=== PATIENT | male | born 1980 | race Caucasian/White ===

== ENCOUNTER 2019-05-03 10:25 | Emergency (ER) | payer BC ==
[2019-05-03] MEDS ORDERED: MORPHINE 4 MG/ML SYR ONE (12:07)
[2019-05-03] MEDS ORDERED: ONDANSETRON 4 MG/2 ML VIAL ONE (12:07)
[2019-05-03 12:31] LABS: Absolute Lymphocytes (CBC) 2.4 K/uL (0.7-4.9); Basophils % 1.4 % (0-1.3); Hematocrit 43.1 % (39.6-49.0); Lymphocytes % 23.3 % (15.3-44.8); RBC Red Blood Cell Count 4.91 M/uL (4.33-5.43)
[2019-05-03 13:06] LABS: ALT/SGPT 45 U/L (12-78); AST/SGOT 36 U/L (15-37); Albumin 3.6 g/dL (3.4-5.0); Alkaline Phosphatase 65 U/L (45-117); BUN Blood Urea Nitrogen 17 mg/dL (7-18); Bicarbonate 30 mmol/L (21-32); Bilirubin Direct < 0.1 mg/dL (0-0.2); Bilirubin Total 0.4 mg/dL (0.2-1.0); Glucose Level 89 mg/dL (74-106); Lipase 177 U/L (73-393); Potassium 4.6 mmol/L (3.5-5.1); Protein, Total 7.9 g/dL (6.4-8.2); Sodium Level 140 mmol/L (136-145)
--- NOTE | 2019-05-03 13:33 | RAD REPORT ---
EXAM DESCRIPTION: CT - Abdomen Pelvis W Contrast - 05/03/2019 1:21 pm CLINICAL HISTORY: ABD PAIN, pain radiates to the back, bloating COMPARISON: None. TECHNIQUE: Biphasic, helical CT imaging of the abdomen and pelvis was performed following 100 ml non -ionic IV contrast. No oral contrast. All CT scans are performed using dose optimization technique as appropriate and may include automated exposure control or mA/KV adjustment according to patient size. FINDINGS: No suspicious findings in the lung bases. The liver, spleen, and pancreas show no suspicious findings. Gallbladder and biliary tree are also wi thout suspicious finding. Symmetric renal function is seen with no hydronephrosis or suspicious renal mass. No pyelonephritis o r acute parenchymal process. No bladder abnormalities. No adrenal abnormalities. No gastric dilatation or wall thickening. No small bowel abnormality seen. Terminal ileum is normal i n appearance. No appendix abnormality. No acute colon process seen. No free air, free fluid or pneum atosis. Patient does have a 19 x 17 millimeter enhancing lymph node in the right mid abdomen with adj acent stranding. No other lymphadenopathy. No adjacent bowel abnormality seen. No hernia, mass or bu lky lymphadenopathy. No suspicious bony findings. IMPRESSION: Patient has a solitary a 19 x 17 millimeter enhancing lymph node in the right mid abdome n with adjacent stranding. This is most likely mesenteric adenitis process. Adjacent bowel is normal in appearance. No appendicitis or emergent finding. No other significant finding.
--- NOTE | 2019-05-03 13:44 | ER ---
Nurse's Notes [facility] Name: Marcos Viera Age: 39 yrs Sex: Male : 1980 Arrival Date: 05/03/2019 Time: 10:28 Bed 6 Private MD: Diagnosis: Upper abdominal pain, unspecified Presentation: 05/03 10:39 Presenting complaint: Patient states: Upper abd pain radiating to back that began aa5 Monday. Denies nausea/vomiting/diarrhea. Reports bloating. Transition of care: patient was not received from another setting of care. Onset of symptoms was April 2019. Risk Assessment: Do you want to hurt yourself or someone else? Patient reports no desire to harm self or others. Initial Sepsis Screen: Does the patient meet any 2 criteria? No. Patient's initial sepsis screen is negative. Does the patient have a suspected source of infection? No. Patient's initial sepsis screen is negative. Care prior to arrival: None. 10:39 Acuity: HERBERT 3 aa5 10:39 Method Of Arrival: Ambulatory aa5 Historical: - Allergies: 10:41 No Known Allergies; aa5 - Home Meds: 10:41 None [Active]; aa5 - PMHx: 10:41 None; aa5 - PSHx: 10:41 Meniscus sx; aa5 - Immunization history:: Flu vaccine is not up to date. - Social history:: Smoking status: Patient/guardian denies using tobacco. - Ebola Screening: : No symptoms or risks identified at this time. Screenin:05 Abuse screen: Denies threats or abuse. Denies injuries from another. Nutritional sv screening: No deficits noted. Tuberculosis screening: No symptoms or risk factors identified. Fall Risk None identified. Assessment: 12:05 General: Appears in no apparent distress. uncomfortable, well groomed, well developed, sv Behavior is calm, cooperative, appropriate for age. Pain: Complains of pain in left upper quadrant and right upper quadrant Pain currently is 7 out of 10 on a pain scale. Pain began about a week ago Is continuous. Neuro: Level of Consciousness is awake, alert, obeys commands, Oriented to person, place, time, situation, Moves all extremities. Full function Speech is normal. Respiratory: Airway is patent Respiratory effort is even, unlabored, Respiratory pattern is regular, symmetrical. GI: Abdomen is round Reports upper abdominal pain, Patient currently denies diarrhea, nausea, vomiting. Derm: Skin is pink, warm \T\ dry. Vital Signs: 10:41 BP 125 / 79; Pulse 86; Resp 16 S; Temp 97.1(TE); Pulse Ox 96% on R/A; Weight 111.13 kg aa5 (R); Height 5 ft. 10 in. (177.80 cm) (R); Pain 7/10; 12:33 BP 116 / 79; Pulse 79; Resp 16; Temp 97.8; Pulse Ox 95% on R/A; em1 13:42 BP 104 / 66; Pulse 81; Resp 16; Pulse Ox 95% ; sv 10:41 Body Mass Index 35.15 (111.13 kg, 177.80 cm) aa5 ED Course: 10:28 Patient arrived in ED. am2 10:39 Arm band placed on. aa5 10:40 Triage completed. aa5 11:43 [facility]ant[facility] Miller [facility]C [facility]. kb 11:43 Zac Alvares MD is Attending Physician. kb 12:04 Zenaida Watt RN is Primary Nurse. sv 12:05 Patient has correct armband on for positive identification. Placed in gown. Bed in low sv position. Call light in reach. Adult w/ patient. Pulse ox on. NIBP on. Door closed. Head of bed elevated. 12:10 Inserted saline lock: 20 gauge in right antecubital area, using aseptic technique. sv Blood collected. Flushed right antecubital with 5 ml normal saline. 12:19 Basic Metabolic Panel Sent. sv 12:20 CBC with Diff Sent. sv 12:20 Lipase Sent. sv 12:20 Hepatic Function Sent. sv 14:04 No provider procedures requiring assistance completed. IV discontinued, intact, sv bleeding controlled, No redness/swelling at site. Pressure dressing applied. Administered Medications: 12:13 Drug: Zofran 4 mg Route: IVP; Site: right antecubital; sv 13:00 Follow up: Response: No adverse reaction sv 12:15 Drug: morphine 4 mg {Note: RASS0.} Route: IVP; Site: right antecubital; sv 13:00 Follow up: Response: No adverse reaction; RASS: Alert and Calm (0) sv Outcome: 13:43 Discharge ordered by . kb 14:04 Patient left the ED. sg 14:04 Discharged to home ambulatory, with family. sv 14:04 Condition: stable 14:04 Discharge instructions given to patient, Instructed on discharge instructions, follow up and referral plans. medication usage, Demonstrated understanding of instructions, follow-up care, medications, Prescriptions given X 1. Signatures: Shantelle Miller, PROTECTIVE SIGNAL INSTALLER-C REBECCA-Zenaida Iniguez RN RN sv Gay, Steven RN RN Robert Rios em1 Casie Salazar RN RN aa5 Helen Huang am2
--- NOTE | 2019-05-03 13:44 | EDPHYS ---
Physician Documentation [facility] Name: Marcos Viera Age: 39 yrs Sex: Male : 1980 Arrival Date: 05/03/2019 Time: 10:28 Bed 6 Private MD: ED Physician Zac Alvares HPI: 05/03 12:52 This 39 yrs old Male presents to ER via Ambulatory with complaints of kb Abdominal Pain, Back Pain. 12:52 The patient presents with abdominal pain in the upper abdomen. Onset: The kb symptoms/episode began/occurred 5 day(s) ago. The symptoms radiate to back. Associated signs and symptoms: none. The symptoms are described as constant. Modifying factors: The symptoms are alleviated by nothing, the symptoms are aggravated by nothing. Severity of pain: At its worst the pain was moderate in the emergency department the pain is unchanged. The patient has not experienced similar symptoms in the past. The patient has not recently seen a physician. 12:53 Pt reports upper abd pain that radiates around to back for 5 days. Denies fever, n/v/d. kb States he does drink beer most days, but not every day. Historical: - Allergies: 10:41 No Known Allergies; aa5 - Home Meds: 10:41 None [Active]; aa5 - PMHx: 10:41 None; aa5 - PSHx: 10:41 Meniscus sx; aa5 - Immunization history:: Flu vaccine is not up to date. - Social history:: Smoking status: Patient/guardian denies using tobacco. - Ebola Screening: : No symptoms or risks identified at this time. ROS: 12:51 Constitutional: Negative for fever, chills, and weight loss, ENT: Negative for injury, kb pain, and discharge, Neck: Negative for injury, pain, and swelling, Cardiovascular: Negative for chest pain, palpitations, and edema, Respiratory: Negative for shortness of breath, cough, wheezing, and pleuritic chest pain, Back: Negative for injury and pain, : Negative for injury, bleeding, discharge, and swelling, MS/Extremity: Negative for injury and deformity, Skin: Negative for injury, rash, and discoloration, Neuro: Negative for headache, weakness, numbness, tingling, and seizure. 12:51 Abdomen/GI: Positive for abdominal pain, Negative for nausea, vomiting, and diarrhea, constipation. Exam: 12:51 Constitutional: This is a well developed, well nourished patient who is awake, alert, kb and in no acute distress. Head/Face: Normocephalic, atraumatic. ENT: Nares patent. No nasal discharge, no septal abnormalities noted. Tympanic membranes are normal and external auditory canals are clear. Oropharynx with no redness, swelling, or masses, exudates, or evidence of obstruction, uvula midline. Mucous membranes moist. Neck: Trachea midline, no thyromegaly or masses palpated, and no cervical lymphadenopathy. Supple, full range of motion without nuchal rigidity, or vertebral point tenderness. No Meningismus. Chest/axilla: Normal chest wall appearance and motion. Nontender with no deformity. No lesions are appreciated. Cardiovascular: Regular rate and rhythm with a normal S1 and S2. No gallops, murmurs, or rubs. Normal PMI, no JVD. No pulse deficits. Respiratory: Lungs have equal breath sounds bilaterally, clear to auscultation and percussion. No rales, rhonchi or wheezes noted. No increased work of breathing, no retractions or nasal flaring. Skin: Warm, dry with normal turgor. Normal color with no rashes, no lesions, and no evidence of cellulitis. MS/ Extremity: Pulses equal, no cyanosis. Neurovascular intact. Full, normal range of motion. Neuro: Awake and alert, GCS 15, oriented to person, place, time, and situation. Cranial nerves II-XII grossly intact. Motor strength 5/5 in all extremities. Sensory grossly intact. Cerebellar exam normal. Normal gait. 12:51 Abdomen/GI: Inspection: abdomen appears normal, Bowel sounds: normal, in all quadrants, Palpation: soft, in all quadrants, mild abdominal tenderness, in the right upper quadrant and left upper quadrant. Vital Signs: 10:41 BP 125 / 79; Pulse 86; Resp 16 S; Temp 97.1(TE); Pulse Ox 96% on R/A; Weight 111.13 kg aa5 (R); Height 5 ft. 10 in. (177.80 cm) (R); Pain 7/10; 12:33 BP 116 / 79; Pulse 79; Resp 16; Temp 97.8; Pulse Ox 95% on R/A; em1 13:42 BP 104 / 66; Pulse 81; Resp 16; Pulse Ox 95% ; sv 10:41 Body Mass Index 35.15 (111.13 kg, 177.80 cm) aa5 MDM: 11:43 Patient medically screened. kb 12:52 Data reviewed: vital signs, nurses notes. Data interpreted: Pulse oximetry: on room air kb is 95 %. Interpretation: normal. 13:42 Counseling: I had a detailed discussion with the patient and/or guardian regarding: the kb historical points, exam findings, and any diagnostic results supporting the discharge/admit diagnosis, lab results, radiology results, the need for outpatient follow up, a family practitioner, to return to the emergency department if symptoms worsen or persist or if there are any questions or concerns that arise at home. 05/03 12:03 Order name: Basic Metabolic Panel kb 05/03 12:03 Order name: CBC with Diff kb 05/03 12:03 Order name: Hepatic Function kb 05/03 12:03 Order name: Lipase kb 05/03 12:42 Order name: CBC with Automated Diff; Complete Time: 12:42 EDMS 05/03 13:06 Order name: Basic Metabolic Panel; Complete Time: 13:07 EDMS 05/03 12:03 Order name: IV Saline Lock; Complete Time: 12:19 kb 05/03 12:04 Order name: US Abdomen Limited 05/03 12:38 Order name: CT Abd/Pelvis - IV Contrast Only 05/03 13:06 Order name: Liver (Hepatic) Function; Complete Time: 13:07 EDMS 05/03 13:07 Order name: Lipase; Complete Time: 13:07 EDMS 05/03 13:35 Order name: CT; Complete Time: 13:38 EDMS 05/03 12:03 Order name: Labs collected and sent; Complete Time: 12:19 kb Administered Medications: 12:13 Drug: Zofran 4 mg Route: IVP; Site: right antecubital; sv 13:00 Follow up: Response: No adverse reaction sv 12:15 Drug: morphine 4 mg {Note: RASS0.} Route: IVP; Site: right antecubital; sv 13:00 Follow up: Response: No adverse reaction; RASS: Alert and Calm (0) sv Disposition: 05/03/19 13:43 Discharged to Home. Impression: Upper abdominal pain, unspecified. - Condition is Stable. - Discharge Instructions: Mesenteric Adenitis, Pediatric, Abdominal Pain, Adult, [id number]. - Prescriptions for Bentyl 20 mg Oral Tablet - take 1 tablet by ORAL route every 6 hours As needed; 20 tablet. - Medication Reconciliation Form, Thank You Letter, Antibiotic Education, Prescription Opioid Use form. - Follow up: Emergency Department; When: As needed; Reason: Worsening of condition. Follow up: Private Physician; When: 2 - 3 days; Reason: Recheck today's complaints, Continuance of care, Re-evaluation by your physician. Addendum: 05/06/2019 10:04 Co-signature as Attending Physician, Zac Alvares MD I agree with the assessment and k dr plan of care. Signatures: Dispatcher [employer] EDMS Shantelle Miller, REBECCA-C TRUSS PULLER HELPER-Zenaida Iniguez, RN RN sv Paul Canales RN RN sg Zac Alvares MD MD [facility] Casie Salazar, RN RN aa5 Corrections: (The following items were deleted from the chart) 05/03 14:04 13:43 05/03/2019 13:43 Discharged to Home. Impression: Upper abdominal pain, sg unspecified. Condition is Stable. Forms are Medication Reconciliation Form, Thank You Letter, Antibiotic Education, Prescription Opioid Use. Follow up: Emergency Department; When: As needed; Reason: Worsening of condition. Follow up: Private Physician; When: 2 - 3 days; Reason: Recheck today's complaints, Continuance of care, Re-evaluation by your physician. kb
[2019-05-03 19:30] VITALS: TEMP 97.8; O2SAT 95
[2019-05-03 19:31] VITALS: BP 104/66
== END 2019-05-03 14:04 | disposition home or self-care (01) ==
LOC: ER 10:25
DX: R10.10 Upper abdominal pain, unspecified (principal)
CPT/HCPCS: 85025; 80048; 36415; 80076; 83690; 74177; 96375; 96374; 99284; Q9967; J2405

== ENCOUNTER 2020-07-27 07:17 | Emergency (ER) | payer BC ==
--- NOTE | 2020-07-27 08:22 | RAD REPORT ---
EXAM DESCRIPTION: US - Abdomen Exam Limited - 07/27/2020 8:15 am CLINICAL HISTORY: ABD PAIN COMPARISON: No comparisons FINDINGS: The gallbladder demonstrates no gallstones. No pericholecystic fluid or gallbladder wall t hickening. The common bile duct is normal measuring 2 mm. The liver demonstrates no findings of intrahepatic biliary dilatation. IMPRESSION: Unremarkable examination.
[2020-07-27 10:34] LABS: Absolute Lymphocytes (CBC) 1.8 K/uL (0.7-4.9); Basophils % 0.9 % (0-1.3); Hematocrit 45.7 % (39.6-49.0); Lymphocytes % 14.5 % (15.3-44.8); RBC Red Blood Cell Count 5.12 M/uL (4.33-5.43)
[2020-07-27] MEDS ORDERED: KETOROLAC 30 MG/ML INJ ONE (10:44)
[2020-07-27] MEDS ORDERED: ONDANSETRON 4 MG/2 ML VIAL ONE (10:44)
[2020-07-27] MEDS ORDERED: NA CHLORIDE 0.9% 1,000 ML ONE (10:45)
[2020-07-27 10:52] LABS: Bilirubin Direct 0.1 mg/dL (0-0.2); Bilirubin Total 0.6 mg/dL (0.2-1.0); Potassium 3.9 mmol/L (3.5-5.1); Protein, Total 8.3 g/dL (6.4-8.2)
--- NOTE | 2020-07-27 11:03 | RAD REPORT ---
EXAM DESCRIPTION: CTAbdomen Pelvis W Contrast - 07/27/2020 10:33 am CLINICAL HISTORY: Abdominal pain. ABD PAIN COMPARISON: Abdomen Pelvis W Contrast dated 05/03/2019 TECHNIQUE: Biphasic CT imaging of the abdomen and pelvis was performed with 100 ml non-ionic IV cont rast. All CT scans are performed using dose optimization technique as appropriate and may include automated exposure control or mA/KV adjustment according to patient size. FINDINGS: The lung bases are clear. The liver, spleen, adrenal glands, pancreas and kidneys are within normal limits. 23 mm inflamed sof t tissue density structure is seen at the root of the small bowel mesentery, anterior to the IVC and inferior to the duodenum. This is of unclear etiology. No bowel obstruction, free air, free fluid or abscess. The appendix is normal. No evidence of signif icant lymphadenopathy. No suspicious bony findings. IMPRESSION: 23 mm inflamed soft tissue lesion is seen inferior to the transverse duodenum. This is o f unclear etiology but may represent of inflamed lymph node. This is a different site of inflammation than seen on the prior study.
[2020-07-27 11:28] LABS: Urine Blood TRACE (NEG); Urine Glucose NEGATIVE (NEG); Urine Protein NEGATIVE (NEG); Urine Specific Gravity 1.025 (1.005-1.030)
[2020-07-27] MEDS ORDERED: CIPROFLOXACIN HCL 500 MG TAB ONE (11:32)
[2020-07-27] MEDS ORDERED: METRONIDAZOLE 500mg IVPB 500 MG/100 ML BAG IV ONE (11:32)
--- NOTE | 2020-07-27 11:59 | EDPHYS ---
Physician Documentation [facility] Name: Marcos Viera Age: 40 yrs Sex: Male : 1980 Arrival Date: 07/27/2020 Time: 07:20 Bed 23 Private MD: ED Physician Toño Mendez HPI: 07/27 10:30 This 40 yrs old Male presents to ER via Ambulatory with complaints of Back cp Pain, Abdominal Pain. 10:30 The patient presents with abdominal pain in the epigastric area, in the right upper cp quadrant. Onset: The symptoms/episode began/occurred 2 day(s) ago. The symptoms radiate to mid back. Associated signs and symptoms: Pertinent negatives: nausea, vomiting, and diarrhea, chest pain, constipation, dysuria, fever, testicular pain. The symptoms are described as described as "bloating". Modifying factors: the symptoms are aggravated by pressure. Historical: - Allergies: 07:51 No Known Allergies; lp1 - Home Meds: 07:51 None [Active]; lp1 - PMHx: 07:51 None; lp1 - PSHx: 07:51 Knee surgery; lp1 - Immunization history:: Adult Immunizations up to date. - Social history:: Smoking status: Patient denies any tobacco usage or history of. ROS: 10:35 Constitutional: Negative for body aches, chills, fever, poor PO intake. cp 10:35 Eyes: Negative for injury, pain, redness, and discharge. cp 10:35 ENT: Negative for ear pain, sore throat, difficulty swallowing, difficulty handling secretions. 10:35 Cardiovascular: Negative for chest pain, palpitations. 10:35 Respiratory: Negative for cough, shortness of breath, wheezing. 10:35 Abdomen/GI: Negative for abdominal pain, nausea, vomiting, and diarrhea, constipation. 10:35 Skin: Negative for cellulitis, rash. 10:35 Neuro: Negative for altered mental status, headache, syncope, weakness. 10:35 All other systems are negative. Exam: 10:50 Constitutional: The patient appears in no acute distress, alert, awake, cp non-diaphoretic, non-toxic, well developed, well nourished. 10:50 Head/Face: Normocephalic, atraumatic. cp 10:50 Eyes: Periorbital structures: appear normal, Conjunctiva: normal, no exudate, no injection, Sclera: no appreciated abnormality, Lids and lashes: appear normal, bilaterally. 10:50 ENT: External ear(s): are unremarkable, Nose: is normal, Mouth: Lips: moist, Oral mucosa: moist, Posterior pharynx: Airway: no evidence of obstruction, patent. 10:50 Chest/axilla: Inspection: normal, Palpation: crepitus, is not appreciated, tenderness, is not appreciated. 10:50 Cardiovascular: Rate: normal, Rhythm: regular. 10:50 Respiratory: the patient does not display signs of respiratory distress, Respirations: normal, no use of accessory muscles, no retractions, labored breathing, is not present, Breath sounds: are clear throughout, no decreased breath sounds. 10:50 Abdomen/GI: Inspection: abdomen appears normal, Bowel sounds: active, all quadrants, Palpation: soft, in all quadrants, moderate abdominal tenderness, in the right upper quadrant and left upper quadrant, rebound tenderness, is not appreciated, voluntary guarding, is elicited in the right upper quadrant and left upper quadrant. 10:50 Back: CVA tenderness, is absent. Vital Signs: 07:51 BP 133 / 82; Pulse 84; Resp 18; Temp 98(O); Pulse Ox 98% on R/A; Weight 108.86 kg; lp1 Height 5 ft. 10 in. (177.80 cm); Pain 7/10; 07:51 Body Mass Index 34.44 (108.86 kg, 177.80 cm) lp1 MDM: 10:02 Patient medically screened. cp 11:00 Differential diagnosis: appendicitis, bowel obstruction, cholecystitis, Cholelithiasis, cp diverticulitis, gastroesophageal reflux disease, pancreatitis, Peptic Ulcer Disease, Perf. Duodenal Ulcer, Perf. Gastric Ulcer, Ureterolithiasis, urinary tract infection. 11:58 Data reviewed: vital signs, nurses notes, lab test result(s), radiologic studies, CT cp scan, ultrasound. 11:58 Counseling: I had a detailed discussion with the patient and/or guardian regarding: the cp historical points, exam findings, and any diagnostic results supporting the discharge/admit diagnosis, lab results, radiology results, the need for outpatient follow up, a family practitioner, to return to the emergency department if symptoms worsen or persist or if there are any questions or concerns that arise at home. Response to treatment: the patient's symptoms have markedly improved after treatment, and as a result, I will discharge patient. Special discussion: Based on the patient's Hx, exam, and Dx evaluation, there is no indication for emergent surgery or inpatient Tx. It is understood by the patient/guardian that if the Sx's persist or worsen they need to return immediately for re-evaluation. ED course: VSS. Discussed results of labs and radiology studies. Will start patient on oral Cipro and Metronidazole and discharge to home for continued monitoring. 07/27 10:08 Order name: Basic Metabolic Panel; Complete Time: 11:06 07/27 11:06 Interpretation: Normal except: GFR 83. 07/27 10:08 Order name: CBC with Diff; Complete Time: 11:06 07/27 11:06 Interpretation: Normal except: WBC 12.60; NELIA% 78.5; LYM% 14.5; NEUT A 9.9. 07/27 10:08 Order name: Hepatic Function; Complete Time: 11:06 07/27 11:06 Interpretation: Normal except: TP 8.3; GLOB 4.3; A/G 0.9. 07/27 10:08 Order name: Lipase; Complete Time: 11: cp 07/27 10:50 Order name: CREATININE WHOLE BLOOD EDUT 07/27 10:54 Order name: Urine Dipstick--Ancillary (enter results) 07/27 07:58 Order name: US Abdomen Limited; Complete Time: 10:07 rn 07/27 10:07 Interpretation: Report reviewed. 07/27 10:08 Order name: IV Saline Lock; Complete Time: 10:15 cp 07/27 10:08 Order name: CT Abd/Pelvis - IV Contrast Only; Complete Time: 11:06 cp 07/27 11:08 Interpretation: Report reviewed. 07/27 10:08 Order name: Labs collected and sent; Complete Time: 10:15 cp 07/27 10:08 Order name: Urine Dipstick-Ancillary (obtain specimen); Complete Time: 12:09 cp Administered Medications: 10:43 Drug: NS 0.9% 1000 ml Route: IV; Rate: 1 bolus; Site: right antecubital; ll1 10:43 Drug: Zofran (Ondansetron) 4 mg Route: IVP; Site: right antecubital; ll1 10:43 Drug: TORadol - Ketorolac 15 mg Route: IVP; Site: left antecubital; ll1 11:22 Drug: metroNIDAZOLE 500 mg Volume: 100 ml; Route: IVPB; Infused Over: 30 mins; Site: ll1 right antecubital; 11:22 Drug: Cipro 500 mg Route: PO; ll1 Disposition: 17:10 Co-signature as Attending Physician, Toño Mendez MD. rn Disposition: 07/27/20 11:59 Discharged to Home. Impression: Upper abdominal pain, unspecified. - Condition is Stable. - Discharge Instructions: Abdominal Pain, Adult. - Prescriptions for Zofran 4 mg Oral Tablet - take 1 tablet by ORAL route every 12 hours As needed; 20 tablet. Cipro 500 mg Oral Tablet - take 1 tablet by ORAL route every 12 hours for 10 days; 20 tablet. Metronidazole 500 mg Oral Tablet - take 1 tablet by ORAL route every 8 hours; 30 tablet. Tramadol 50 mg Oral Tablet - take 1 tablet by ORAL route every 8 hours as needed; 12 tablet. - Work release form, Medication Reconciliation Form, Thank You Letter, Antibiotic Education, Prescription Opioid Use form. - Follow up: Private Physician; When: 1 - 2 days; Reason: Recheck today's complaints. - Problem is new. - Symptoms have improved. Signatures: Dispatcher [employer] EDMS Toño Mendez MD MD rn Pena, Laura, RN RN lp1 Raul Underwood PA PA cp Garcia, Victoria, RN RN vg1 Camilla Daley RN RN ll1 Corrections: (The following items were deleted from the chart) 10:34 10:32 This 40 yrs old Male presents to ER via Ambulatory with complaints of cp Back Pain, Abdominal Pain. cp 12:17 11:59 07/27/2020 11:59 Discharged to Home. Impression: Upper abdominal pain, vg1 unspecified. Condition is Stable. Forms are Medication Reconciliation Form, Thank You Letter, Antibiotic Education, Prescription Opioid Use. Follow up: Private Physician; When: 1 - 2 days; Reason: Recheck today's complaints. Problem is new. Symptoms have improved. cp
--- NOTE | 2020-07-27 11:59 | ER ---
Nurse's Notes [facility] Name: Marcos Viera Age: 40 yrs Sex: Male : 1980 Arrival Date: 07/27/2020 Time: 07:20 Bed 23 Private MD: Diagnosis: Upper abdominal pain, unspecified Presentation: 07/27 07:49 Chief complaint: Patient states: Upper abdominal pain that began about 2 days ago, lp1 radiating to back; previously symptoms similarly; worsening pain; Denies fever. Coronavirus screen: Client denies travel out of the [place] in the last 14 days. At this time, the client does not indicate any symptoms associated with coronavirus-19. Ebola Screen: No symptoms or risks identified at this time. Risk Assessment: Do you want to hurt yourself or someone else? Patient reports no desire to harm self or others. Onset of symptoms was July 25, 2020. 07:49 Method Of Arrival: Ambulatory lp1 07:49 Acuity: HERBERT 3 lp1 07:51 Initial Sepsis Screen: Does the patient meet any 2 criteria? No. Patient's initial lp1 sepsis screen is negative. Does the patient have a suspected source of infection? No. Patient's initial sepsis screen is negative. Triage Assessment: 12:07 General: Appears uncomfortable, Behavior is calm, cooperative, appropriate for age. ll1 Musculoskeletal: Circulation, motion, and sensation intact. Capillary refill Range of motion: intact in all extremities, Reports mid back pain. Historical: - Allergies: 07:51 No Known Allergies; lp1 - Home Meds: 07:51 None [Active]; lp1 - PMHx: 07:51 None; lp1 - PSHx: 07:51 Knee surgery; lp1 - Immunization history:: Adult Immunizations up to date. - Social history:: Smoking status: Patient denies any tobacco usage or history of. Screenin:53 Abuse screen: Denies threats or abuse. Denies injuries from another. Nutritional lp1 screening: No deficits noted. Tuberculosis screening: No symptoms or risk factors identified. Fall Risk None identified. Assessment: 09:55 Pain: Complains of pain in epigastric Pain currently is 8 out of 10 on a pain scale. ll1 Quality of pain is described as aching. Neuro: No deficits noted. 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 Full function Gait is steady, Speech is normal. GI: Abdomen is round Bowel sounds present X 4 quads. Abd is soft Abdomen is tender to palpation in epigastric area Reports upper abdominal pain, nausea. 11:00 Reassessment: No changes from previously documented assessment. Patient and/or family ll1 updated on plan of care and expected duration. Pain level reassessed. Patient is alert, oriented x 3, equal unlabored respirations, skin warm/dry/pink. 12:00 Reassessment: No changes from previously documented assessment. Patient and/or family ll1 updated on plan of care and expected duration. Pain level reassessed. Patient is alert, oriented x 3, equal unlabored respirations, skin warm/dry/pink. Vital Signs: 07:51 BP 133 / 82; Pulse 84; Resp 18; Temp 98(O); Pulse Ox 98% on R/A; Weight 108.86 kg; lp1 Height 5 ft. 10 in. (177.80 cm); Pain 7/10; 07:51 Body Mass Index 34.44 (108.86 kg, 177.80 cm) lp1 ED Course: 07:20 Patient arrived in ED. ds1 07:49 Arm band placed on left wrist. lp1 07:51 Triage completed. lp1 08:14 US Abdomen Limited In Process Unspecified. EDMS 10:01 Raul Underwood PA is PHCP. cp 10:01 Toño Mendez MD is Attending Physician. cp 10:02 Patient placed in an exam room, on a stretcher. ll1 10:05 Camilla Daley, YARELIS is Primary Nurse. ll1 10:06 Patient has correct armband on for positive identification. Bed in low position. Call ll1 light in reach. Side rails up X 1. 10:12 Inserted saline lock: 20 gauge in right antecubital area, using aseptic technique. ll1 Blood collected. 10:33 CT Abd/Pelvis - IV Contrast Only In Process Unspecified. EDMS 12:16 No provider procedures requiring assistance completed. IV discontinued, intact, vg1 bleeding controlled, No redness/swelling at site. Pressure dressing applied. Administered Medications: 10:43 Drug: NS 0.9% 1000 ml Route: IV; Rate: 1 bolus; Site: right antecubital; ll1 10:43 Drug: Zofran (Ondansetron) 4 mg Route: IVP; Site: right antecubital; ll1 10:43 Drug: TORadol - Ketorolac 15 mg Route: IVP; Site: left antecubital; ll1 11:22 Drug: metroNIDAZOLE 500 mg Volume: 100 ml; Route: IVPB; Infused Over: 30 mins; Site: ll1 right antecubital; 11:22 Drug: Cipro 500 mg Route: PO; ll1 Outcome: 11:59 Discharge ordered by MD. cp 12:16 Discharged to home ambulatory. vg1 12:16 Condition: stable 12:16 Discharge instructions given to patient, Instructed on discharge instructions, follow up and referral plans. medication usage, Demonstrated understanding of instructions, follow-up care, medications, Prescriptions given X 4. 12:17 Patient left the ED. vg1 Signatures: Dispatcher [employer] ED[facility] [place] ds1 Ashley Lawler RN RN lp1 Raul Underwood PA PA Lacy Tosusaint RN RN vg1 Camilla Daley RN RN ll1 Corrections: (The following items were deleted from the chart) 07:54 07:51 Pulse 84bpm; Resp 18bpm; Pulse Ox 98% RA; 108.86 kg; Height 5 ft. 10 in.; BMI: lp1 34.4; Pain 7/10; lp1
[2020-07-27 12:25] VITALS: BP 133/82; TEMP 98; O2SAT 98
== END 2020-07-27 12:17 | disposition home or self-care (01) ==
LOC: ER 07:17
DX: R10.11 Right upper quadrant pain (principal); R10.12 Left upper quadrant pain
CPT/HCPCS: 85025; 80048; 36415; 82565; 80076; 81003; 83690; 74177; 76705; 99284; Q9967; J7030; J2405

== ENCOUNTER 2023-03-24 08:09 | Day surgery (SDC) | payer OTHER ==
[2023-03-24 08:30] LABS: Potassium 3.8 mEq/L (3.5-5.1)
[2023-03-24] MEDS ORDERED: Ringers Lactate 1,000 ML IV ONE (08:44)
[2023-03-24] MEDS ORDERED: LIDOCAINE 1% MPF 2 ML AMPULE ONE (09:48)
[2023-03-24] MEDS ORDERED: GLYCOPYRROLATE 0.2 MG/ML SYR ONE (09:48)
[2023-03-24] MEDS ORDERED: propofoL 200 MG/20 ML VIAL IV ONE ×2 (09:48)
[2023-03-24 12:02] VITALS: BP 104/71; TEMP 97.6; O2SAT 98
--- NOTE | 2023-03-24 14:40 | EKG ---
Test Date: 2023-03-24 Test Time: 08:01:51 Horse Rancher: LOS MEASUREMENT RESULTS: Intervals: Rate: 75 DE: 170 QRSD: 92 QT: 374 QTc: 417 [place]: P: 47 DE: 170 QRS: 49 T: 44 INTERPRETIVE STATEMENTS: Normal sinus rhythm Normal ECG No previous ECG available for comparison Electronically Signed On 03-24-23 14:39:08 CDT by Delory Cadena
== END 2023-03-24 10:45 | disposition home or self-care (01) ==
LOC: OR 08:09
PROVIDERS: ATTEND Surgery
PROC: 0DBN8ZX Excision of Sigmoid Colon, Via Natural or Artificial Opening Endoscopic, Diagnostic (ICD-10-PCS; 2023-03-24)
PROC: 0DBH8ZX Excision of Cecum, Via Natural or Artificial Opening Endoscopic, Diagnostic (ICD-10-PCS; principal; 2023-03-24 10:30)
DX: K62.5 Hemorrhage of anus and rectum (principal); N42.9 Disorder of prostate, unspecified; K64.8 Other hemorrhoids; Z80.0 Family history of malignant neoplasm of digestive organs
CPT/HCPCS: 45380; 93005; 80048; 36415; 88305; J2704 ×2; J7120